=== PATIENT | female | born 2000 | race African-American/Black ===

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

== ENCOUNTER 2020-12-10 08:24 | Outpatient (CLI) | payer OTHER | END 2020-12-10 08:25 | disposition home or self-care (01) | LOC: BICULT 08:24 | PROVIDERS: ATTEND Family Medicine | DX: Z34.02 Encounter for supervision of normal first pregnancy, second trimester (principal); Z3A.20 20 weeks gestation of pregnancy | CPT/HCPCS: 76805 ==